=== PATIENT | female | born 1995 ===

== ENCOUNTER → 2022-12-12 14:16 | Outpatient (BNVA) | payer OTHER, SELFPAY | PROVIDERS: PCP Student in an Organized Health Care Education/Training Program; Visit Provider Nurse Practitioner Family | DX: R40.0 Somnolence (principal); R06.81 Apnea, not elsewhere classified; R06.83 Snoring | CPT/HCPCS: 99202 ==

== ENCOUNTER 2023-04-14 15:26 | Outpatient (AMB) | payer OTHER, SELFPAY ==
--- NOTE | 2023-04-14 15:29 | A.OFFVIS_ITS ---
Intake Vital Signs 04/14/23 15:30 Height 5 ft 3 in Weight 219 lb 8 oz BMI 38.9 BP 130/80 Blood Pressure Location Lt brachial Position Sitting Pulse 75 Pulse Source Pulse Oximeter Pulse Oximetry (%) 98 Oxygen Delivery Method Room Air Intake Visit Reasons: 4m follow up Dist sleep behavior -conf Intake Note: Pt presents today for sleep fup, no changes Allergies No Known Allergies Allergy (Verified 04/14/23 15:33) HPI HPI Comments History of Present Illness Details 27 y/o female patient presents for follo w up visit. Pt reports she rescheduled sleep study to 05/26/23. She still has difficulty staying sleep, wakes up every 2-3 hrs. Pt reports that she snores a lot since she was a child, and has bad seasonal allergy. She had nasal septoplasty and adenoidectomy last year, but she still snores, and has nasal congestion all the time. She reports nocturia and AM headache. Amitriptyline was prescribed but she only tried couple times and stopped using it. She gained over 20 lb over the last 2 years. FORMERLY [facility], [facility] Surgical History H/O nasal septoplasty Social History Alcohol intake: never Patient Tobacco Use Status: Never used Tobacco Review of Systems Const All systems reviewed & are unremarkable except as noted in HPI and below ENT Reports Normal hearing present Neuro Reports Normal hearing present Physical Exam Vital Signs: Last Vital Signs Pulse 75 04/14/23 15:30 BP 130/80 04/14/23 15:30 Pulse Ox 98 04/14/23 15:30 Oxygen Delivery Method Room Air 04/14/23 15:30 Const General: cooperative Nutritional Appearance: obese Orientation/consciousness: patient oriented x3 Limitations: no limitations Neck Neck: Yes full ROM and Yes supple Resp Effort & Inspection: normal respiratory effort and able to speak in complete sentences Neuro General: patient oriented x3 and gait normal Cranial nerves: Yes Bilaterally intact EOM present, Yes Normal facial strength present, Yes Midline tongue present, Yes Symmetric palate elevation present, Yes Normal hearing present, Yes Ability to bilaterally rotate head present and Yes Ability to bilaterally elevate shoulders present Cognition (Neuro): normal cognition Gait exam (Neuro): Normal gait present Motor exam (neuro): 5/5 motor strength present throughout, Pronator motor function not present and no tremor noted Psych Appearance: grossly normal Mental Status: mental status grossly normal Speech and movement: Normal speech and movement present Affect: normal affect Attitude: cooperative Assessment & Plan Assessment & Plan (1) Daytime sleepiness: Code(s): R40.0 - Somnolence (2) Witnessed episode of apnea: Code(s): R06.81 - Apnea, not elsewhere classified (3) Snoring: Code(s): R06.83 - Snoring Plan Pt is advised to undergo home sleep study to assess for sleep apnea. Will f/u with pt after study to discuss results and appropriate treatment options. Sleep hygiene education provided. Continue to take amitripyline 25 mg and magnesium 400 mg qHS to promote sleep and prevent headahce. Pt to call with any worsening concerns or questions. Coding Level of Care Code Est Pt Level 3 (94681) Diagnoses Daytime sleepiness R40.0 Witnessed episode of apnea R06.81 Snoring R06.83
[2023-04-14 15:30] VITALS: BP 130/80; PULSE 75; O2SAT 98; BMI 38.9
== END 2023-04-14 15:46 | disposition home or self-care (01) ==
PROVIDERS: PCP Student in an Organized Health Care Education/Training Program; Visit Provider Nurse Practitioner Family
DX: R40.0 Somnolence (principal); R06.81 Apnea, not elsewhere classified; R06.83 Snoring
CPT/HCPCS: 99213

== ENCOUNTER → 2023-04-14 15:26 | Outpatient (BNVA) | payer OTHER, SELFPAY | PROVIDERS: PCP Student in an Organized Health Care Education/Training Program; Visit Provider Nurse Practitioner Family | DX: R40.0 Somnolence (principal); R06.81 Apnea, not elsewhere classified; R06.83 Snoring | CPT/HCPCS: 99212 ==

== ENCOUNTER → 2023-05-26 14:33 | Outpatient (REF) | payer OTHER, SELFPAY | LOC: HO.SL 14:33 | PROVIDERS: PCP Internal Medicine; Visit Provider Nurse Practitioner Family | DX: G47.33 Obstructive sleep apnea (adult) (pediatric) (principal); R06.83 Snoring; R40.0 Somnolence | CPT/HCPCS: 95806; 95811 ==

== ENCOUNTER → 2023-05-26 14:51 | Outpatient (BNV) | payer OTHER, SELFPAY | PROVIDERS: PCP Internal Medicine; Visit Provider Psychiatry & Neurology Neurology | DX: G47.33 Obstructive sleep apnea (adult) (pediatric) (principal) | CPT/HCPCS: 95806 ==

== ENCOUNTER → 2023-06-26 22:58 | Outpatient (REF) | payer OTHER, SELFPAY | LOC: HO.SL 22:58 | PROVIDERS: PCP Internal Medicine; Visit Provider Nurse Practitioner Family | DX: Z13.89 Encounter for screening for other disorder (principal) ==

== ENCOUNTER → 2023-06-27 03:49 | Outpatient (BNV) | payer OTHER, SELFPAY | PROVIDERS: PCP Internal Medicine; Visit Provider Psychiatry & Neurology Neurology | DX: G47.33 Obstructive sleep apnea (adult) (pediatric) (principal) | CPT/HCPCS: 95811 ==

== ENCOUNTER 2023-07-30 14:44 | Outpatient (AMB) | payer OTHER, SELFPAY ==
--- NOTE | 2023-07-30 14:59 | A.OFFVIS_ITS ---
Intake Vital Signs 07/30/23 15:04 Height 5 ft 3 in Weight 219 lb BMI 38.8 BP 120/80 Blood Pressure Location Lt brachial Position Sitting Pulse 76 Pulse Source Pulse Oximeter Pulse Oximetry (%) 96 Oxygen Delivery Method Room Air Intake Visit Reasons: 3M follow up - CONF Intake Note: Patient presents 3 month f/u. more sleepy during the day and having trouble sleeping at night Allergies No Known Allergies Allergy (Verified 07/30/23 15:02) HPI HPI Comments History of Present Illness Details 27 y/o female patient presents for follo w up sleep study. The home sleep study result was significant for a severe degree of sleep apnea. The AHI was 29/hr and oxygen froilan was 79%. The duration of the O2 sat <88% was more than 60 min. Pt underwent CPAP titration study. She was trialed on CPAP 5-12, her breathing and oxygenation stabilized on CPAP at 11, 12. Pt reports continues to have excessive daytime sleepiness. Migraine has improved with magnesium and amitriptyline, no migraine headache since the last visit. [facility]LY [facility] Surgical History H/O nasal septoplasty Social History Alcohol intake: never Patient Tobacco Use Status: Never used Tobacco Review of Systems Const All systems reviewed & are unremarkable except as noted in HPI and below ENT Reports Normal hearing present Neuro Reports Normal hearing present Physical Exam Vital Signs: Last Vital Signs Pulse 76 07/30/23 15:04 BP 120/80 07/30/23 15:04 Pulse Ox 96 07/30/23 15:04 Oxygen Delivery Method Room Air 07/30/23 15:04 BMI result Body Mass Index 38.8 Const General: cooperative Nutritional Appearance: obese Orientation/consciousness: patient oriented x3 Limitations: no limitations Neck Neck: Yes full ROM and Yes supple Resp Effort & Inspection: normal respiratory effort and able to speak in complete sentences Neuro General: patient oriented x3 and gait normal Cranial nerves: Yes Bilaterally intact EOM present, Yes Normal facial strength present, Yes Midline tongue present, Yes Symmetric palate elevation present, Yes Normal hearing present, Yes Ability to bilaterally rotate head present and Yes Ability to bilaterally elevate shoulders present Cognition (Neuro): normal cognition Gait exam (Neuro): Normal gait present Motor exam (neuro): 5/5 motor strength present throughout, Pronator motor function not present and no tremor noted Psych Appearance: grossly normal Mental Status: mental status grossly normal Speech and movement: Normal speech and movement present Affect: normal affect Attitude: cooperative Assessment & Plan Assessment & Plan (1) RIKA (obstructive sleep apnea): Comment: Severe degree of sleep apnea. The AHI was 29/hr and oxygen froilan was 79% Code(s): G47.33 - Obstructive sleep apnea (adult) (pediatric) (2) Migraine: Code(s): G43.909 - Migraine, unspecified, not intractable, without status migrainosus Plan Advised patient to start CPAP at [id number]. Stressed compliance, use CPAP nightly and more than 4 hrs. Continue to take magnesium 400 mg and amitriptyline 25 mg qHS for migraine prevention. Coding Level of Care Code Est Pt Level 4 (04000) Diagnoses RIKA (obstructive sleep apnea) G47.33 Migraine G43.909
[2023-07-30 15:04] VITALS: BP 120/80; PULSE 76; O2SAT 96; BMI 38.8
== END 2023-07-30 15:15 | disposition home or self-care (01) ==
PROVIDERS: PCP Student in an Organized Health Care Education/Training Program; Visit Provider Nurse Practitioner Family
DX: G47.33 Obstructive sleep apnea (adult) (pediatric) (principal); G43.909 Migraine, unspecified, not intractable, without status migrainosus
CPT/HCPCS: 99214

== ENCOUNTER → 2023-07-30 14:44 | Outpatient (BNVA) | payer OTHER, SELFPAY | PROVIDERS: PCP Student in an Organized Health Care Education/Training Program; Visit Provider Nurse Practitioner Family | DX: G47.33 Obstructive sleep apnea (adult) (pediatric) (principal); G43.909 Migraine, unspecified, not intractable, without status migrainosus | CPT/HCPCS: 99212 ==